=== PATIENT | female | born 1980 | race Caucasian/White ===

== ENCOUNTER 2017-02-28 07:40 | Outpatient (CLI) | payer OTHER ==
--- NOTE | 2017-02-28 09:18 | ULT ---
RIGHT UPPER QUADRANT ULTRASOUND: Date: 02-28-17 History: Right upper quadrant pain. FINDINGS: The visualized portions of the pancreas, visualized portions of the IVC, liver, gallbladder and right kidney demonstrate a normal sonographic appearance. The right kidney measures 10.3 cm in length. The common duct measures 0.2 cm in diameter which is within normal limits. IMPRESSION: Normal right upper quadrant ultrasound. No gallbladder calculi are visualized, and the common duct is normal in caliber. POS: [id number]
== END 2017-02-28 07:41 | disposition home or self-care (01) ==
LOC: SCSULT 07:40
PROVIDERS: ATTEND Family Medicine
DX: R10.11 Right upper quadrant pain (principal)
CPT/HCPCS: 76705